=== PATIENT | male | born 1960 | race Caucasian/White ===

== ENCOUNTER → 2017-04-30 | Outpatient (CLI) | payer BC, OTHER ==
[~2017-04-30] MED LIST: CITA20TA9 PO; FISHOIL PO; LOSA1TAB38 PO; MULTTAB58 PO; VIT C PO; WARF2TAB PO
--- NOTE | 2017-04-30 08:47 | DIAGNOSTIC IMAGING REPORT ---
L SHOULDER MIN 2 VIEWS CLINICAL HISTORY: BILATERAL SHOULDER PAIN pain COMPARISON: None. DISCUSSION: Severe degenerative change left shoulder. Peripheral osteophytic change of the humeral head. Subchondral cystic change on a degenerative basis throughout the bulk of the humeral head. No evidence for fracture or dislocation. There is no evidence for soft tissue swelling. IMPRESSION: Significant degenerative change left shoulder with prominence noted at the level of the humeral head. The above report was generated using voice recognition software. It may contain grammatical, syntax or spelling errors. Electronically signed by: Otoniel El M.D. 04/30/2017 8:46 AM Dictated Date/Time: 04/30/2017 8:45 AM
--- NOTE | 2017-04-30 08:47 | DIAGNOSTIC IMAGING REPORT ---
R SHOULDER MIN 2 VIEWS HISTORY: 56 years-old Male BILATERAL SHOULDER PAIN chronic bilateral shoulder pain COMPARISON: Right shoulder radiographs 03/06/2016 TECHNIQUE: 4 views of the right shoulder FINDINGS: Severe degenerative changes with joint space remodeling, prominent marginal osteophytosis with subchondral sclerosis and subcortical cystic changes noted within the glenohumeral joint. No acute fracture or dislocation. Mild AC joint degenerative changes. Soft tissues are unremarkable. Imaged lung sosa appear clear. IMPRESSION: Severe glenohumeral osteoarthritis without acute fracture or dislocation. The above report was generated using voice recognition software. It may contain grammatical, syntax or spelling errors. Electronically signed by: Navi Gentile M.D. 04/30/2017 8:46 AM Dictated Date/Time: 04/30/2017 8:44 AM
== END | disposition home or self-care (01) ==
LOC: C.RDSM 08:06
PROVIDERS: ATTEND Physician Assistant
DX: M19.011 Primary osteoarthritis, right shoulder (principal); M19.012 Primary osteoarthritis, left shoulder

== ENCOUNTER 2017-10-19 20:54 | Emergency (ER) | payer OTHER ==
[~2017-10-19] VITALS: Ht 177.8 cm; Wt 105.7 kg
[2017-10-19 20:58] VITALS: BP 171/105; PULSE 68; TEMP 36.8; O2SAT 96; Ht 177.8 cm; Wt 105.7 kg
[2017-10-19] MEDS ORDERED: LIDOCAINE 1% BUFFERED INJ 20 ML VIAL INFIL ONE (21:15)
--- NOTE | 2017-10-19 22:43 | EMERGENCY ROOM VISIT NOTE ---
History First contact with patient: 21:02 Chief Complaint: LACERATION/CUT (SUT/DERMABOND) Stated Complaint: CUT ON LEFT FOOT Nursing Triage Summary: Lac between left pinky and fourth toe History of Present Illness The patient is a 57 year old male who presents to the Emergency Room with complaints of a laceration to his left foot. The patient was cleaning a shotgun when a piece of the gun fell off and landed on his foot. The patient rates his discomfort a 2 out of 10. Tetanus immunization is up-to-date. The patient denies any significant bleeding from the wound. Review of Systems 6 system review was performed and was negative except for pertinent positives and negatives as indicated in history of present illness Past Medical/Surgical History Medical Problems: (1) Hypertension Nos (2) Lumbago (3) Mixed Hyperlipidemia (4) Type 2 Diabetes Mellitus Without Complications Surgical Problems: (1) No history of previous surgery Family History Unremarkable Social History Smoking Status: Never Smoker Alcohol Use: occasionally Marital Status: Occupation Status: employed Current/Historical Medications Scheduled Citalopram Hydrobromide (Celexa), 30 MG PO QAM Fish Oil ([place]-3), 3 CAP PO QAM Losartan Potassium (Cozaar), 100 MG PO QAM Multiple Vitamin (Multivitamin), 1 TAB PO QAM Warfarin Sodium (Coumadin), 2 MG PO DAILY [Vit C], 1,500 MG PO QAM Physical Exam Vital Signs Date Time Temp Pulse Resp B/P (MAP) Pulse Ox O2 Delivery O2 Flow Rate FiO2 18 20:58 36.8 68 18 171/105 96 Room Air Physical Exam CONSTITUTIONAL: Healthy and well nourished. Alert and oriented X 3 with positive affect. HEENT: Normocephalic, atraumatic. Pupils equal, round and reactive. NECK: Full active range of motion without discomfort. MUSCULOSKELETAL: Examination of the left foot shows a stellate 1 cm laceration of the dorsal foot between the fourth and fifth metatarsal heads. No active bleeding noted. Patient has no worsening discomfort with passive range of motion of the fourth and fifth toes. Capillary refill of the toes is less than 2 seconds. INTEGUMENTARY: No rash or other significant dermatologic conditions noted. NEUROLOGIC: Left foot and toes are sensory intact. Medical Decision & Procedures Procedure Laceration repair was performed under local anesthesia after receiving verbal consent from the patient. Using buffered 1% lidocaine without epinephrine, good local anesthesia was administered. The wound was then peripherally cleansed with iodine, then irrigated with normal saline. Under sterile field, the wound was then approximated using 5-0 nylon simple interrupted sutures. A bacitracin bandage was applied. The patient tolerated the procedure well without any blood loss. ED Course Patient history and physical exam were performed. Nurse's notes were reviewed. Vital signs were reviewed, showing a blood pressure of 171/105. Laceration repair was performed under local anesthesia. The patient was provided additional verbal and written wound care instructions. Ice and elevation for swelling. Ibuprofen or Tylenol as needed for pain. Suture removal in 12-14 days, or seek reevaluation sooner for any signs of wound infection. The patient was happy with plan of care, voiced understanding of all discharge instructions, and denied any pain at the time of discharge. I did recommend that the patient follow up with his PCP for blood pressure recheck. Medical Decision Medication Reconcilliation Current Medication List: was personally reviewed by me Blood Pressure Screening Patient's blood pressure: Elevated blood pressure Blood pressure disposition: Referred to PCP Impression Primary Impression: Laceration of left foot Additional Impression: Elevated blood pressure reading with diagnosis of hypertension Departure Information Dispostion Home / Self-Care Condition GOOD Forms HOME CARE DOCUMENTATION FORM, IMPORTANT VISIT INFORMATION Patient Instructions [facility] Additional Instructions Keep wound clean and dry. Do not allow any crusting or dried blood to accumulate on sutures. If this occurs, use a 1:1 solution of hydrogen peroxide/ water on a Q-tip to clean the wound. Use an antibiotic ointment for 3-4 days, then let wound dry. Suture removal in 12-14 days. Return sooner for any signs of infection (increasing redness, swelling, drainage). Ice and elevate for swelling and pain. Ibuprofen 600 mg and Tylenol 1000 mg every 6 hrs for pain. Problem Qualifiers Primary Impression: Laceration of left foot Encounter type: initial encounter Qualified Codes: S91.312A - Laceration without foreign body, left foot, initial encounter
== END 2017-10-19 21:33 | disposition home or self-care (01) ==
LOC: C.EDB 20:57 → C.EDD 21:33
DX: S91.312A Laceration without foreign body, left foot, initial encounter (principal); W20.8XXA Other cause of strike by thrown, projected or falling object, initial encounter; Y93.89 Activity, other specified; I10 Essential (primary) hypertension; E78.2 Mixed hyperlipidemia; E11.9 Type 2 diabetes mellitus without complications; Z79.01 Long term (current) use of anticoagulants; Z79.899 Other long term (current) drug therapy